=== PATIENT | male | born 1970 ===

== ENCOUNTER 2024-04-19 16:03 | Outpatient (REF) | payer BC, SELFPAY ==
[2024-04-19 14:57] LABS: C-Reactive Protein 1.95 mg/dL (<or=0.5)
[2024-04-20 09:59] LABS: Lyme Ab w Rflx to Lyme Confirm Negative (Negative)
== END 2024-04-19 16:04 | disposition home or self-care (01) ==
LOC: LBN 16:03
PROVIDERS: Visit Provider Nurse Practitioner Family
DX: M25.562 Pain in left knee (principal)
CPT/HCPCS: 84550; 86140; 86618